=== PATIENT | female | born 1945 | race Caucasian/White ===

== ENCOUNTER 2017-03-19 18:55 | Inpatient (IN) ==
[2017-03-19] MEDS ORDERED: SODIUM CHLORIDE 0.9% 500 ML IV STA (19:40)
[2017-03-19] MEDS ORDERED: VANCOMYCIN INJ 1,000 MG in SODIUM CHLORIDE 0.9% 250 ML IV STA (19:49)
[2017-03-19] MEDS ORDERED: DIPH/TET/ACEL PERT BOOSTER VACCINE 0.5 ML VIAL IM ONE ×2 (19:49→20:23)
[2017-03-19 20:00] LABS: Basophils % 0.2 % (0.0-0.8); Eosinophils % 0.2 % (0.00-10.9); Hematocrit 44.2 VOL% (35.7-47.0); Hemoglobin 15.6 GM/DL (12.0-16.0); Immature Granulocytes % 0.5 %; Immature Granulocytes Absolute 0.06 #; Lymphocytes # 0.5 10*3/uL (1.4-4.0); Lymphocytes % 4.2 % (21.3-54.2); Mean Corpuscular HGB Conc 35.3 GM/DL (32-36); Mean Corpuscular Hemoglobin 36 PG (27-34); Mean Corpuscular Volume 100.7 FL (87-102); Mean Platelet Volume 13.2 FL (9.6-12.0); Monocytes # 0.6 10*3/uL (0.11-0.8); Monocytes % 4.8 % (1.7-12.7); Neutrophils # 10.4 10*3/uL (1.4-7.4); Neutrophils % 90.1 % (38.7-73.9); Platelet Count 113 T/CUMM (130-400); Red Blood Count 4.39 MC/CUMM (3.8-5.5); Red Cell Distribution Width 15.6 % (9.3-17.3); White Blood Count 11.6 T/CUMM (4-12)
[2017-03-19 20:08] LABS: INR 1.1; PT Patient Result 11.2 SECS
[2017-03-19 20:09] LABS: ABG Base Excess 4.6 MMOL/L (-2.5-2.5); ABG HCO3 28.4 MMOL/L (20-26); ABG PCO2 54.3 MM HG (35-48); ABG PH 7.372 (7.35-7.45); ABG PO2 84.5 MM HG (80-95); ABG TCO2 27.2 MMOL/L (23-27)
[2017-03-19] MEDS ORDERED: VANCOMYCIN 1,000 MG VIAL ONE (20:17)
[2017-03-19 20:31] LABS: Ammonia 31 UMOL/L (11-32); Lactic Acid 2.1 MMOL/L (0.4-2.0)
[2017-03-19 20:36] LABS: Barbiturates Screen,Urine Negative (Negative); Benzodiazepines Screen,Urine Negative (Negative); Cannabinoid Screen,Urine Negative (Negative); Opiate Screen,Urine Negative (Negative); Phencyclidine Screen,Urine Negative (Negative)
[2017-03-19 20:37] LABS: Apearance,Urine Slightly Hazy (Clear); Bacteria,Urine Occasional /HPF (Few); Bilirubin,Urine Negative (Negative); Blood, Urine Large mg/dL (Negative); Glucose,Urine (UA) Negative (Negative); Hyaline Casts,Urine 45 /LPF (0-3); Ketones,Urine 5 mg/dL (Negative); Mucus,Urine Occasional /LPF (Occasional); Nitrite,Urine Negative (Negative); Protein,Urine 100 MG/DL; RBC,Urine 114 /HPF (0-4); Squamous Epithelial Cell,Urine Occasional /HPF (0-10); Urine Color Yellow (Yellow); Urine Specific Gravity 1.013 (1.001-1.035); WBC,Urine 1 /HPF (0-6)
[2017-03-19 20:40] LABS: Alanine Aminotransferase 19 U/L (13-56); Alkaline Phosphatase 93 U/L (45-117); Aspartate Amino Transferase 51 U/L (0-37); Blood Urea Nitrogen 27 MG/DL (7-18); Calcium 9.7 MG/DL (8.5-10.1); Glucose 86 MG/DL (74-106); Magnesium 1.5 MG/DL (1.8-2.4); Osmolality,Calculated 254.5 MOS/KG (273-304); Potassium 3.8 MMOL/L (3.5-5.1); Sodium 125 MMOL/L (136-145); Troponin I Only 0.034 NG/ML (0.00-0.045)
[2017-03-19] MEDS ORDERED: MAGNESIUM SULF RIDER 2 GM in PREMIX 1 EACH IV STA (21:17)
[2017-03-19] MEDS ORDERED: LABETALOL 20 MG/4 ML SYRINGE IV PRN (21:41)
[2017-03-19] MEDS ORDERED: ALBUTEROL 2.5 MG/3 ML NEB RESP TX PRN (21:41)
[2017-03-19] MEDS ORDERED: MAGNESIUM SULF RIDER 50 ML IV ONE (21:47)
[2017-03-19] MEDS ORDERED: LORazepam 2 MG/1 ML VIAL IV PRN (22:00)
[2017-03-19] MEDS ORDERED: VALPROIC ACID INJ 500 MG in SODIUM CHLORIDE 0.9% 100 ML IV SCH (22:00)
[2017-03-20] MEDS: SODIUM CHLORIDE 0.9% 1,000 ML IV SCH ×2 (00:31→08:11)
[2017-03-20] MEDS: ENOXAPARIN 40 MG/0.4 ML SYRINGE SUBCUT SCH ×2 (01:13→22:25)
[2017-03-20] MEDS: PANTOPRAZOLE 40 MG VIAL IV SCH ×2 (01:14→22:25)
[2017-03-20 01:16] LABS: Basophils % 0.1 % (0.0-0.8); Hematocrit 35.1 VOL% (35.7-47.0); Hemoglobin 12.3 GM/DL (12.0-16.0); Immature Granulocytes % 0.5 %; Immature Granulocytes Absolute 0.05 #; Lymphocytes # 0.5 10*3/uL (1.4-4.0); Lymphocytes % 4.7 % (21.3-54.2); Mean Corpuscular Hemoglobin 35 PG (27-34); Mean Corpuscular Volume 99.7 FL (87-102); Mean Platelet Volume 13.6 FL (9.6-12.0); Monocytes # 0.7 10*3/uL (0.11-0.8); Monocytes % 6.9 % (1.7-12.7); Neutrophils # 9.4 10*3/uL (1.4-7.4); Neutrophils % 87.8 % (38.7-73.9); Platelet Count 105 T/CUMM (130-400); Red Blood Count 3.52 MC/CUMM (3.8-5.5); Red Cell Distribution Width 15.6 % (9.3-17.3); White Blood Count 10.7 T/CUMM (4-12)
[2017-03-20] MEDS: LEVOFLOXACIN INJ 750 MG in PREMIX 1 EACH IV SCH ×2 (01:17→22:23)
[2017-03-20] MEDS: ALBUTEROL/IPRATROPIUM 3 ML NEB RESP TX SCH ×3 (01:23→12:21)
[2017-03-20 01:37] LABS: Albumin 2.3 G/DL (3.4-5.0); Bilirubin,Total 0.5 MG/DL (0.2-1.0); Calcium 8.7 MG/DL (8.5-10.1); Osmolality,Calculated 269.5 MOS/KG (273-304); Potassium 3.8 MMOL/L (3.5-5.1); Risk Ratio 1.74; Total Protein 5.8 G/DL (6.4-8.3); VLDL CHOLESTEROL 11.6 MG/DL
[2017-03-20] MEDS: levETIRAcetam INJ 500 MG in SODIUM CHLORIDE 0.9% 50 ML IV SCH ×2 (02:01→14:15)
[2017-03-20] MEDS: SODIUM CHLORIDE 0.9% IV SCH ×3 (02:20→18:14)
[2017-03-20] MEDS: VALPROIC ACID IV SCH ×3 (02:20→18:14)
[2017-03-20 03:15] LABS: Band Neutrophils 2 % (0-10); Lymphocytes 6 % (20-55); Platelet Estimate Decreased; Segmented Neutrophils 89 % (50-85); Total Cells Counted 100
[2017-03-20 10:52] LABS: Free T4 (Free Thyroxine) 1.14 NG/DL (0.76-1.46); Thyroid Stimulating Hormone 3.68 uIU/ml (0.358-3.74)
[2017-03-20] MEDS: DEXTROSE 5% NACL 0.9% 1,000 ML IV SCH ×2 (11:06→22:26)
[2017-03-20] MEDS: ASPIRIN 300 MG SUPP RECTAL SCH (11:06)
[2017-03-20] MEDS: LEVOTHYROXINE 75 MCG TABLET PO SCH (19:42)
[2017-03-21] MEDS: ALBUTEROL/IPRATROPIUM 3 ML NEB RESP TX SCH ×4 (00:32→19:52)
[2017-03-21] MEDS: levETIRAcetam INJ 500 MG in SODIUM CHLORIDE 0.9% 50 ML IV SCH ×2 (02:46→15:34)
[2017-03-21] MEDS: VALPROIC ACID IV SCH ×3 (03:09→21:36)
[2017-03-21] MEDS: SODIUM CHLORIDE 0.9% IV SCH ×3 (03:09→21:36)
[2017-03-21] MEDS: DEXTROSE 5% NACL 0.9% 1,000 ML IV SCH (05:52)
[2017-03-21] MEDS: LEVOTHYROXINE 75 MCG TABLET PO SCH (06:25)
[2017-03-21 07:09] LABS: Basophils % 0.1 % (0.0-0.8); Hematocrit 25.7 VOL% (35.7-47.0); Hemoglobin 8.5 GM/DL (12.0-16.0); Immature Granulocytes % 0.4 %; Immature Granulocytes Absolute 0.03 #; Lymphocytes # 0.5 10*3/uL (1.4-4.0); Mean Corpuscular HGB Conc 33.1 GM/DL (32-36); Mean Corpuscular Hemoglobin 36 PG (27-34); Mean Corpuscular Volume 108.4 FL (87-102); Mean Platelet Volume 13.7 FL (9.6-12.0); Monocytes # 0.5 10*3/uL (0.11-0.8); Monocytes % 5.7 % (1.7-12.7); NRBC # 0.02 10*3/uL; Neutrophils # 7.2 10*3/uL (1.4-7.4); Neutrophils % 87.8 % (38.7-73.9); Platelet Count 72 T/CUMM (130-400); Red Blood Count 2.37 MC/CUMM (3.8-5.5); Red Cell Distribution Width 16.6 % (9.3-17.3); White Blood Count 8.2 T/CUMM (4-12)
[2017-03-21 07:26] LABS: Macrocytosis 1+
[2017-03-21 07:27] LABS: Platelet Estimate Decreased
[2017-03-21 07:37] LABS: Calcium 6.8 MG/DL (8.5-10.1); Osmolality,Calculated 304.8 MOS/KG (273-304); Potassium 2.9 MMOL/L (3.5-5.1)
[2017-03-21] MEDS ORDERED: DEXTROSE 50% 25 GM/50 ML VIAL IV PRN (07:50)
[2017-03-21] MEDS ORDERED: GLUCAGON 1 MG VIAL IM PRN (07:50)
[2017-03-21] MEDS: INSULIN REGULAR 100 UNIT/ML SUBCUT SCH ×3 (12:41→20:30)
[2017-03-21] MEDS ORDERED: MAGNESIUM SULF RIDER 2 GM in PREMIX 1 EACH IV ONE (13:50)
[2017-03-21] MEDS ORDERED: CALCIUM GLUCONATE 2,000 MG in SODIUM CHLORIDE 0.9% 100 ML IV ONE (13:50)
[2017-03-21] MEDS ORDERED: POTASSIUM CHLORIDE 20 MEQ TABLET PO ONE (14:00)
[2017-03-21] MEDS: ASPIRIN 300 MG SUPP RECTAL SCH (17:50)
[2017-03-21] MEDS: ENOXAPARIN 40 MG/0.4 ML SYRINGE SUBCUT SCH (22:42)
[2017-03-21] MEDS: LEVOFLOXACIN INJ 750 MG in PREMIX 1 EACH IV SCH (22:42)
[2017-03-21] MEDS: PANTOPRAZOLE 40 MG VIAL IV SCH (22:42)
[2017-03-22] MEDS: ALBUTEROL/IPRATROPIUM 3 ML NEB RESP TX SCH ×5 (01:42→19:33)
[2017-03-22] MEDS: levETIRAcetam INJ 500 MG in SODIUM CHLORIDE 0.9% 50 ML IV SCH ×2 (02:25→15:16)
[2017-03-22] MEDS: SODIUM CHLORIDE 0.9% IV SCH ×3 (02:45→18:42)
[2017-03-22] MEDS: VALPROIC ACID IV SCH ×3 (02:45→18:42)
[2017-03-22] MEDS: LEVOTHYROXINE 75 MCG TABLET PO SCH (07:05)
[2017-03-22 07:13] LABS: Basophils % 0.2 % (0.0-0.8); Hematocrit 33.6 VOL% (35.7-47.0); Hemoglobin 11.5 GM/DL (12.0-16.0); Immature Granulocytes % 1.4 %; Immature Granulocytes Absolute 0.12 #; Lymphocytes # 0.6 10*3/uL (1.4-4.0); Lymphocytes % 7.5 % (21.3-54.2); Mean Corpuscular HGB Conc 34.2 GM/DL (32-36); Mean Corpuscular Hemoglobin 35 PG (27-34); Mean Corpuscular Volume 103.1 FL (87-102); Mean Platelet Volume 13.3 FL (9.6-12.0); Monocytes # 0.6 10*3/uL (0.11-0.8); Monocytes % 7.5 % (1.7-12.7); NRBC # 0.03 10*3/uL; Neutrophils % 83.4 % (38.7-73.9); Platelet Count 96 T/CUMM (130-400); Red Blood Count 3.26 MC/CUMM (3.8-5.5); Red Cell Distribution Width 16.4 % (9.3-17.3); White Blood Count 8.4 T/CUMM (4-12)
[2017-03-22 07:30] LABS: Hypochromasia 2+
[2017-03-22 07:39] LABS: Calcium 8.9 MG/DL (8.5-10.1); Magnesium 2.2 MG/DL (1.8-2.4); Osmolality,Calculated 269.2 MOS/KG (273-304); Potassium 3.8 MMOL/L (3.5-5.1)
[2017-03-22] MEDS: INSULIN REGULAR 100 UNIT/ML SUBCUT SCH ×4 (08:49→21:27)
[2017-03-22] MEDS: ASPIRIN 300 MG SUPP RECTAL SCH (09:59)
[2017-03-22] MEDS: ACETYLCYSTEINE 20% 6,000 MG/30 ML VIAL RESP TX SCH ×2 (12:37→18:46)
[2017-03-22] MEDS: ENOXAPARIN 40 MG/0.4 ML SYRINGE SUBCUT SCH (22:23)
[2017-03-22] MEDS: PANTOPRAZOLE 40 MG VIAL IV SCH (22:24)
[2017-03-22] MEDS: LEVOFLOXACIN INJ 750 MG in PREMIX 1 EACH IV SCH (22:27)
[2017-03-23] MEDS: ALBUTEROL/IPRATROPIUM 3 ML NEB RESP TX SCH ×5 (00:11→23:33)
[2017-03-23] MEDS: ACETYLCYSTEINE 20% 6,000 MG/30 ML VIAL RESP TX SCH ×3 (00:11→16:13)
[2017-03-23] MEDS: levETIRAcetam INJ 500 MG in SODIUM CHLORIDE 0.9% 50 ML IV SCH ×2 (02:16→15:11)
[2017-03-23] MEDS: VALPROIC ACID IV SCH ×3 (04:26→18:35)
[2017-03-23] MEDS: SODIUM CHLORIDE 0.9% IV SCH ×3 (04:26→18:35)
[2017-03-23] MEDS: LEVOTHYROXINE 75 MCG TABLET PO SCH (06:21)
[2017-03-23 07:15] LABS: PT Patient Result 10.4 SECS; Partial Thromboplastin Time 35.7 SECS (0-40)
[2017-03-23 07:40] LABS: Calcium 9.1 MG/DL (8.5-10.1)
[2017-03-23] MEDS ORDERED: LIDOCAINE 2% 20 ML VIAL RESP TX ONE (08:14)
[2017-03-23] MEDS ORDERED: LIDOCAINE 2% TOP JELLY 5 ML TUBE TOP ONE (08:16)
[2017-03-23] MEDS ORDERED: LIDOCAINE 1% 20 ML VIAL MISC INJ ONE (08:30)
[2017-03-23] MEDS: INSULIN REGULAR 100 UNIT/ML SUBCUT SCH ×4 (09:54→21:53)
[2017-03-23] MEDS: ASPIRIN 300 MG SUPP RECTAL SCH (11:08)
[2017-03-23] MEDS: amLODIPine 5 MG TABLET PO SCH (15:12)
[2017-03-23] MEDS: LISINOPRIL/HCTZ 20-12.5 MG TABLET PO SCH (15:13)
[2017-03-23] MEDS: DORNASE ALFA 2.5 MG/2.5 ML VIAL RESP TX SCH (18:55)
[2017-03-23] MEDS: LEVOFLOXACIN INJ 750 MG in PREMIX 1 EACH IV SCH (21:42)
[2017-03-23] MEDS: PANTOPRAZOLE 40 MG VIAL IV SCH (21:45)
[2017-03-23] MEDS: ENOXAPARIN 40 MG/0.4 ML SYRINGE SUBCUT SCH (21:49)
[2017-03-24] MEDS: levETIRAcetam INJ 500 MG in SODIUM CHLORIDE 0.9% 50 ML IV SCH ×2 (02:17→14:32)
[2017-03-24] MEDS: SODIUM CHLORIDE 0.9% IV SCH ×3 (03:09→18:42)
[2017-03-24] MEDS: VALPROIC ACID IV SCH ×3 (03:09→18:42)
[2017-03-24] MEDS: ALBUTEROL/IPRATROPIUM 3 ML NEB RESP TX SCH ×3 (07:07→19:24)
[2017-03-24] MEDS: INSULIN REGULAR 100 UNIT/ML SUBCUT SCH ×4 (08:09→20:13)
[2017-03-24] MEDS: LISINOPRIL/HCTZ 20-12.5 MG TABLET PO SCH (08:40)
[2017-03-24] MEDS: LEVOTHYROXINE 75 MCG TABLET PO SCH (08:41)
[2017-03-24] MEDS: amLODIPine 5 MG TABLET PO SCH (08:41)
[2017-03-24] MEDS: ASPIRIN 300 MG SUPP RECTAL SCH (08:41)
[2017-03-24] MEDS: NICOTINE 21 MG/24 HR PATCH TRANSDERM SCH (15:00)
[2017-03-24] MEDS ORDERED: ACETAMINOPHEN 325 MG SUPP RECTAL PRN (16:16)
[2017-03-24] MEDS ORDERED: hydrALAZINE 20 MG/1 ML VIAL IV PRN (16:17)
[2017-03-24] MEDS: DEXTROSE 5% 1,000 ML IV SCH (17:38)
[2017-03-24] MEDS: SODIUM CHLORIDE 0.9% 1,000 ML IV SCH (17:49)
[2017-03-24] MEDS: DORNASE ALFA 2.5 MG/2.5 ML VIAL RESP TX SCH (19:24)
[2017-03-24] MEDS: VANCOMYCIN INJ 1,250 MG in SODIUM CHLORIDE 0.45% 250 ML IV SCH (20:10)
[2017-03-24] MEDS: ENOXAPARIN 40 MG/0.4 ML SYRINGE SUBCUT SCH (22:16)
[2017-03-24] MEDS: PANTOPRAZOLE 40 MG VIAL IV SCH (22:16)
[2017-03-24] MEDS: LEVOFLOXACIN INJ 750 MG in PREMIX 1 EACH IV SCH (22:19)
[2017-03-25] MEDS: ALBUTEROL/IPRATROPIUM 3 ML NEB RESP TX SCH ×4 (00:14→19:22)
[2017-03-25] MEDS: levETIRAcetam INJ 500 MG in SODIUM CHLORIDE 0.9% 50 ML IV SCH ×2 (02:16→14:04)
[2017-03-25 02:35] LABS: Calcium 8.4 MG/DL (8.5-10.1); Potassium 3.8 MMOL/L (3.5-5.1)
[2017-03-25] MEDS: VALPROIC ACID IV SCH ×3 (02:37→18:34)
[2017-03-25] MEDS: SODIUM CHLORIDE 0.9% IV SCH ×3 (02:37→18:34)
[2017-03-25 02:55] LABS: Basophils % 0.5 % (0.0-0.8); Eosinophils % 0.4 % (0.00-10.9); Hematocrit 31.7 VOL% (35.7-47.0); Hemoglobin 10.6 GM/DL (12.0-16.0); Immature Granulocytes % 6.2 %; Lymphocytes # 0.9 10*3/uL (1.4-4.0); Mean Corpuscular HGB Conc 33.4 GM/DL (32-36); Mean Corpuscular Hemoglobin 35 PG (27-34); Mean Corpuscular Volume 105.7 FL (87-102); Mean Platelet Volume 13.4 FL (9.6-12.0); Monocytes # 1.4 10*3/uL (0.11-0.8); Monocytes % 17.1 % (1.7-12.7); Neutrophils # 5.2 10*3/uL (1.4-7.4); Neutrophils % 64.8 % (38.7-73.9); Platelet Count 63 T/CUMM (130-400); Red Cell Distribution Width 16.5 % (9.3-17.3); White Blood Count 8.1 T/CUMM (4-12)
[2017-03-25] MEDS: LEVOTHYROXINE 75 MCG TABLET PO SCH (06:16)
[2017-03-25] MEDS: INSULIN REGULAR 100 UNIT/ML SUBCUT SCH ×4 (07:45→20:25)
[2017-03-25] MEDS: DORNASE ALFA 2.5 MG/2.5 ML VIAL RESP TX SCH ×3 (07:52→19:34)
[2017-03-25 08:13] LABS: Hypochromasia 2+; Lymphocytes 13 % (20-55); Microcytosis 1+; Platelet Estimate Decreased; Segmented Neutrophils 72 % (50-85); Total Cells Counted 100
[2017-03-25] MEDS: VANCOMYCIN INJ 1,250 MG in SODIUM CHLORIDE 0.45% 250 ML IV SCH ×2 (08:39→20:25)
[2017-03-25] MEDS: ASPIRIN 300 MG SUPP RECTAL SCH (08:39)
[2017-03-25] MEDS: NICOTINE 21 MG/24 HR PATCH TRANSDERM SCH (08:39)
[2017-03-25] MEDS: DEXTROSE 5% 1,000 ML IV SCH (13:34)
[2017-03-25] MEDS: SODIUM CHLORIDE 0.9% 1,000 ML IV SCH (14:01)
[2017-03-25] MEDS: PANTOPRAZOLE 40 MG VIAL IV SCH (22:27)
[2017-03-25] MEDS: LEVOFLOXACIN INJ 750 MG in PREMIX 1 EACH IV SCH (22:29)
[2017-03-25] MEDS: ENOXAPARIN 40 MG/0.4 ML SYRINGE SUBCUT SCH (22:30)
[2017-03-26] MEDS: ALBUTEROL/IPRATROPIUM 3 ML NEB RESP TX SCH ×4 (01:21→20:15)
[2017-03-26] MEDS: DEXTROSE 5% 1,000 ML IV SCH ×2 (01:40→09:08)
[2017-03-26] MEDS: levETIRAcetam INJ 500 MG in SODIUM CHLORIDE 0.9% 50 ML IV SCH ×2 (01:40→15:00)
[2017-03-26] MEDS: SODIUM CHLORIDE 0.9% IV SCH ×3 (02:45→18:23)
[2017-03-26] MEDS: VALPROIC ACID IV SCH ×3 (02:45→18:23)
[2017-03-26 05:51] LABS: Calcium 7.6 MG/DL (8.5-10.1); Magnesium 1.7 MG/DL (1.8-2.4); Osmolality,Calculated 279.2 MOS/KG (273-304); Phosphorous 2.9 MG/DL (2.5-4.9); Potassium 3.9 MMOL/L (3.5-5.1); Prealbumin 5.5 MG/DL (20-40)
[2017-03-26] MEDS: DORNASE ALFA 2.5 MG/2.5 ML VIAL RESP TX SCH ×2 (07:46→20:15)
[2017-03-26] MEDS: LEVOTHYROXINE 75 MCG TABLET PO SCH (07:58)
[2017-03-26] MEDS: INSULIN REGULAR 100 UNIT/ML SUBCUT SCH ×4 (09:05→20:43)
[2017-03-26] MEDS: VANCOMYCIN INJ 1,250 MG in SODIUM CHLORIDE 0.45% 250 ML IV SCH (09:06)
[2017-03-26] MEDS: SODIUM CHLORIDE 0.9% 1,000 ML IV SCH ×2 (09:08→11:31)
[2017-03-26] MEDS: ASPIRIN 300 MG SUPP RECTAL SCH (09:51)
[2017-03-26] MEDS: SKIN HEALING OINT (AQUAPHOR) 50 GM TUBE TOP PRN (09:56)
[2017-03-26] MEDS: NICOTINE 21 MG/24 HR PATCH TRANSDERM SCH (10:00)
[2017-03-26 10:43] LABS: ABG Base Excess 10.5 MMOL/L (-2.5-2.5); ABG HCO3 34.2 MMOL/L (20-26); ABG Oxygen Saturation 93.3 % (95-100); ABG PCO2 54.9 MM HG (35-48); ABG PH 7.432 (7.35-7.45); ABG PO2 68.3 MM HG (80-95); ABG TCO2 33.3 MMOL/L (23-27)
[2017-03-26] MEDS: methylPREDNISolone SOD SUC 125 MG/2 ML VIAL IV SCH ×2 (11:31→21:55)
[2017-03-26] MEDS: PANTOPRAZOLE 40 MG VIAL IV SCH (21:54)
[2017-03-26] MEDS: LEVOFLOXACIN INJ 750 MG in PREMIX 1 EACH IV SCH (21:57)
[2017-03-26] MEDS: CHLORHEXIDINE 0.12% ORAL RINSE 60 ML BOTTLE SWISH/SPIT SCH (22:10)
[2017-03-27] MEDS: ALBUTEROL/IPRATROPIUM 3 ML NEB RESP TX SCH ×4 (01:25→20:00)
[2017-03-27] MEDS: levETIRAcetam INJ 500 MG in SODIUM CHLORIDE 0.9% 50 ML IV SCH ×2 (02:01→14:13)
[2017-03-27] MEDS: VALPROIC ACID IV SCH ×3 (02:19→18:19)
[2017-03-27] MEDS: SODIUM CHLORIDE 0.9% IV SCH ×3 (02:19→18:19)
[2017-03-27] MEDS: VANCOMYCIN INJ 1,250 MG in SODIUM CHLORIDE 0.45% 250 ML IV SCH ×2 (04:04→21:28)
[2017-03-27] MEDS: LEVOTHYROXINE 75 MCG TABLET PO SCH (07:31)
[2017-03-27 08:15] LABS: Basophils # 0.1 10*3/uL (0.0-0.2); Basophils % 0.4 % (0.0-0.8); Hematocrit 34.6 VOL% (35.7-47.0); Hemoglobin 11.5 GM/DL (12.0-16.0); Immature Granulocytes % 4.4 %; Immature Granulocytes Absolute 0.63 #; Lymphocytes # 0.4 10*3/uL (1.4-4.0); Lymphocytes % 2.7 % (21.3-54.2); Mean Corpuscular HGB Conc 33.2 GM/DL (32-36); Mean Corpuscular Hemoglobin 35 PG (27-34); Mean Corpuscular Volume 105.2 FL (87-102); Mean Platelet Volume 13.7 FL (9.6-12.0); Monocytes # 0.6 10*3/uL (0.11-0.8); Monocytes % 3.9 % (1.7-12.7); NRBC # 0.04 10*3/uL; Neutrophils # 12.7 10*3/uL (1.4-7.4); Neutrophils % 88.6 % (38.7-73.9); Platelet Count 58 T/CUMM (130-400); Red Blood Count 3.29 MC/CUMM (3.8-5.5); Red Cell Distribution Width 15.9 % (9.3-17.3); White Blood Count 14.3 T/CUMM (4-12)
[2017-03-27] MEDS: DORNASE ALFA 2.5 MG/2.5 ML VIAL RESP TX SCH ×2 (08:28→20:10)
[2017-03-27] MEDS: INSULIN REGULAR 100 UNIT/ML SUBCUT SCH ×4 (08:32→21:25)
[2017-03-27 08:39] LABS: Band Neutrophils 4 % (0-10); Hypochromasia 2+; Lymphocytes 1 % (20-55); Metamyelocytes 3 %; Segmented Neutrophils 90 % (50-85); Total Cells Counted 100
[2017-03-27 08:40] LABS: Albumin 1.5 G/DL (3.4-5.0); Bilirubin,Total 0.4 MG/DL (0.2-1.0); Macrocytosis 1+; Osmolality,Calculated 278.1 MOS/KG (273-304); Phosphorous 3.7 MG/DL (2.5-4.9); Platelet Estimate Decreased; Potassium 4.4 MMOL/L (3.5-5.1); Total Protein 5.5 G/DL (6.4-8.3)
[2017-03-27] MEDS: methylPREDNISolone SOD SUC 125 MG/2 ML VIAL IV SCH ×2 (09:50→22:44)
[2017-03-27] MEDS: NICOTINE 21 MG/24 HR PATCH TRANSDERM SCH (09:55)
[2017-03-27] MEDS: CHLORHEXIDINE 0.12% ORAL RINSE 60 ML BOTTLE SWISH/SPIT SCH ×2 (09:59→21:29)
[2017-03-27] MEDS ORDERED: FUROSEMIDE 40 MG/4 ML VIAL IV ONE (12:12)
[2017-03-27] MEDS: SODIUM CHLORIDE 0.9% 1,000 ML IV SCH (14:09)
[2017-03-27] MEDS ORDERED: TUBERCULIN SKIN TEST 0.1 ML SYRINGE INTRADERM ONE (15:00)
[2017-03-27] MEDS: PANTOPRAZOLE 40 MG VIAL IV SCH (22:42)
[2017-03-27] MEDS: LEVOFLOXACIN INJ 750 MG in PREMIX 1 EACH IV SCH (23:40)
[2017-03-28] MEDS: ALBUTEROL/IPRATROPIUM 3 ML NEB RESP TX SCH ×4 (01:20→19:49)
[2017-03-28] MEDS: levETIRAcetam INJ 500 MG in SODIUM CHLORIDE 0.9% 50 ML IV SCH ×2 (01:53→14:02)
[2017-03-28] MEDS: SODIUM CHLORIDE 0.9% 1,000 ML IV SCH ×2 (02:06→22:15)
[2017-03-28] MEDS: VALPROIC ACID IV SCH ×3 (02:16→18:03)
[2017-03-28] MEDS: SODIUM CHLORIDE 0.9% IV SCH ×3 (02:16→18:03)
[2017-03-28 05:42] LABS: Basophils # 0.1 10*3/uL (0.0-0.2); Basophils % 0.5 % (0.0-0.8); Hematocrit 34.1 VOL% (35.7-47.0); Hemoglobin 11.6 GM/DL (12.0-16.0); Immature Granulocytes % 5.9 %; Lymphocytes # 0.4 10*3/uL (1.4-4.0); Lymphocytes % 2.1 % (21.3-54.2); Mean Corpuscular Hemoglobin 35 PG (27-34); Mean Corpuscular Volume 103.6 FL (87-102); Mean Platelet Volume 14.2 FL (9.6-12.0); Monocytes # 0.9 10*3/uL (0.11-0.8); Monocytes % 5.6 % (1.7-12.7); NRBC # 0.06 10*3/uL; Neutrophils # 14.5 10*3/uL (1.4-7.4); Neutrophils % 85.9 % (38.7-73.9); Platelet Count 64 T/CUMM (130-400); Red Blood Count 3.29 MC/CUMM (3.8-5.5); Red Cell Distribution Width 15.9 % (9.3-17.3); White Blood Count 16.9 T/CUMM (4-12)
[2017-03-28 06:02] LABS: Band Neutrophils 3 % (0-10); Hypochromasia 2+; Lymphocytes 2 % (20-55); Macrocytosis 1+; Nucleated Red Blood Cells 2 (0-5); Platelet Estimate Decreased; Segmented Neutrophils 94 % (50-85); Total Cells Counted 100
[2017-03-28 06:16] LABS: Calcium 8.9 MG/DL (8.5-10.1); Magnesium 1.9 MG/DL (1.8-2.4); Osmolality,Calculated 289.5 MOS/KG (273-304); Potassium 3.6 MMOL/L (3.5-5.1)
[2017-03-28 06:22] LABS: Albumin 1.7 G/DL (3.4-5.0); Bilirubin,Total 0.6 MG/DL (0.2-1.0); Calcium 8.9 MG/DL (8.5-10.1); Osmolality,Calculated 289.5 MOS/KG (273-304); Potassium 3.6 MMOL/L (3.5-5.1); Total Protein 5.7 G/DL (6.4-8.3)
[2017-03-28] MEDS: LEVOTHYROXINE 75 MCG TABLET PO SCH (08:02)
[2017-03-28] MEDS: DORNASE ALFA 2.5 MG/2.5 ML VIAL RESP TX SCH ×2 (08:08→19:49)
[2017-03-28] MEDS ORDERED: MIDAZOLAM 2 MG/2 ML VIAL ONE (08:26)
[2017-03-28] MEDS ORDERED: PROPOFOL 200 MG/20 ML VIAL IV ONE (08:32)
[2017-03-28] MEDS ORDERED: LIDOCAINE 2% 5 ML VIAL ONE (08:32)
[2017-03-28] MEDS: INSULIN REGULAR 100 UNIT/ML SUBCUT SCH ×4 (09:04→22:15)
[2017-03-28] MEDS: CHLORHEXIDINE 0.12% ORAL RINSE 60 ML BOTTLE SWISH/SPIT SCH ×2 (10:24→22:15)
[2017-03-28] MEDS: methylPREDNISolone SOD SUC 125 MG/2 ML VIAL IV SCH ×2 (10:31→23:34)
[2017-03-28] MEDS: NICOTINE 21 MG/24 HR PATCH TRANSDERM SCH (10:32)
[2017-03-28] MEDS: FUROSEMIDE 20 MG/2 ML VIAL IV SCH ×2 (11:13→23:38)
[2017-03-28] MEDS ORDERED: FUROSEMIDE 40 MG/4 ML VIAL IV ONE (13:32)
[2017-03-28] MEDS: VANCOMYCIN INJ 1,250 MG in SODIUM CHLORIDE 0.45% 250 ML IV SCH (14:46)
[2017-03-28] MEDS: PANTOPRAZOLE 40 MG VIAL IV SCH (23:40)
[2017-03-28] MEDS: LEVOFLOXACIN INJ 750 MG in PREMIX 1 EACH IV SCH (23:43)
[2017-03-29] MEDS: ALBUTEROL/IPRATROPIUM 3 ML NEB RESP TX SCH ×4 (00:41→19:05)
[2017-03-29] MEDS: levETIRAcetam INJ 500 MG in SODIUM CHLORIDE 0.9% 50 ML IV SCH ×2 (01:45→14:03)
[2017-03-29] MEDS: SODIUM CHLORIDE 0.9% IV SCH ×3 (02:23→18:04)
[2017-03-29] MEDS: VALPROIC ACID IV SCH ×3 (02:23→18:04)
[2017-03-29 03:21] LABS: Apearance,Urine CLEAR (Clear); Bilirubin,Urine Negative (Negative); Blood, Urine Small mg/dL (Negative); Glucose,Urine (UA) Negative (Negative); Hyaline Casts,Urine 2 /LPF (0-3); Ketones,Urine Negative (Negative); Mucus,Urine Occasional /LPF (Occasional); Nitrite,Urine Negative (Negative); Protein,Urine Negative; RBC,Urine 5 /HPF (0-4); Urine Color Yellow (Yellow); Urine Specific Gravity 1.009 (1.001-1.035); Urine Urobilinogen < 2.0 EU/DL (0.2-1.0); WBC,Urine <1 /HPF (0-6)
[2017-03-29 06:40] LABS: Calcium 8.8 MG/DL (8.5-10.1); Magnesium 2.1 MG/DL (1.8-2.4); Osmolality,Calculated 300.1 MOS/KG (273-304); Phosphorous 3.8 MG/DL (2.5-4.9); Potassium 3.8 MMOL/L (3.5-5.1)
[2017-03-29] MEDS: DORNASE ALFA 2.5 MG/2.5 ML VIAL RESP TX SCH ×2 (07:26→19:05)
[2017-03-29] MEDS: NICOTINE 21 MG/24 HR PATCH TRANSDERM SCH (08:57)
[2017-03-29] MEDS: CHLORHEXIDINE 0.12% ORAL RINSE 60 ML BOTTLE SWISH/SPIT SCH ×2 (08:57→22:15)
[2017-03-29] MEDS: LEVOTHYROXINE 75 MCG TABLET PO SCH (08:57)
[2017-03-29] MEDS: INSULIN REGULAR 100 UNIT/ML SUBCUT SCH ×4 (08:57→22:05)
[2017-03-29] MEDS: SODIUM CHLORIDE 0.9% 1,000 ML IV SCH ×2 (09:07→18:04)
[2017-03-29] MEDS: methylPREDNISolone SOD SUC 125 MG/2 ML VIAL IV SCH ×2 (10:36→22:10)
[2017-03-29] MEDS: FUROSEMIDE 20 MG/2 ML VIAL IV SCH ×2 (10:38→22:09)
[2017-03-29] MEDS: PANTOPRAZOLE 40 MG VIAL IV SCH (22:06)
[2017-03-29] MEDS: LEVOFLOXACIN INJ 750 MG in PREMIX 1 EACH IV SCH (22:12)
[2017-03-30] MEDS: ALBUTEROL/IPRATROPIUM 3 ML NEB RESP TX SCH ×4 (00:22→19:15)
[2017-03-30] MEDS: levETIRAcetam INJ 500 MG in SODIUM CHLORIDE 0.9% 50 ML IV SCH ×2 (02:24→15:39)
[2017-03-30] MEDS: VALPROIC ACID IV SCH ×3 (02:41→17:30)
[2017-03-30] MEDS: SODIUM CHLORIDE 0.9% IV SCH ×3 (02:41→17:30)
[2017-03-30 05:31] LABS: Basophils # 0.1 10*3/uL (0.0-0.2); Basophils % 0.4 % (0.0-0.8); Hematocrit 31.6 VOL% (35.7-47.0); Hemoglobin 10.3 GM/DL (12.0-16.0); Immature Granulocytes % 7.7 %; Immature Granulocytes Absolute 1.15 #; Lymphocytes # 0.5 10*3/uL (1.4-4.0); Lymphocytes % 3.3 % (21.3-54.2); Mean Corpuscular HGB Conc 32.6 GM/DL (32-36); Mean Corpuscular Hemoglobin 35 PG (27-34); Mean Corpuscular Volume 107.1 FL (87-102); Mean Platelet Volume 13.8 FL (9.6-12.0); Monocytes # 1.1 10*3/uL (0.11-0.8); Monocytes % 7.3 % (1.7-12.7); NRBC # 0.04 10*3/uL; Neutrophils # 12.2 10*3/uL (1.4-7.4); Neutrophils % 81.3 % (38.7-73.9); Platelet Count 60 T/CUMM (130-400); Red Blood Count 2.95 MC/CUMM (3.8-5.5)
[2017-03-30 06:18] LABS: Band Neutrophils 1 % (0-10); Lymphocytes 4 % (20-55); Metamyelocytes 2 %; Total Cells Counted 100
[2017-03-30 06:19] LABS: Hypochromasia 2+; Platelet Estimate Decreased; Segmented Neutrophils 85 % (50-85); Target Cells 1+
[2017-03-30] MEDS ORDERED: VANCOMYCIN INJ 1,250 MG in SODIUM CHLORIDE 0.45% 250 ML IV PRN (07:30)
[2017-03-30] MEDS: DORNASE ALFA 2.5 MG/2.5 ML VIAL RESP TX SCH ×2 (07:36→19:20)
[2017-03-30] MEDS ORDERED: VANCOMYCIN INJ 1,250 MG in SODIUM CHLORIDE 0.45% 250 ML IV ONE (09:00)
[2017-03-30] MEDS ORDERED: LIDOCAINE 1% 20 ML VIAL MISC INJ ONE (10:16)
[2017-03-30] MEDS ORDERED: LIDOCAINE 2% TOP JELLY 5 ML TUBE TOP ONE (11:00)
[2017-03-30] MEDS: LEVOTHYROXINE 75 MCG TABLET PO SCH (11:23)
[2017-03-30] MEDS: FLUCONAZOLE INJ 200 MG in PREMIX 1 EACH IV SCH ×2 (11:24→14:40)
[2017-03-30] MEDS: NICOTINE 21 MG/24 HR PATCH TRANSDERM SCH (11:24)
[2017-03-30] MEDS: ASPIRIN 300 MG SUPP RECTAL SCH (11:24)
[2017-03-30] MEDS: INSULIN REGULAR 100 UNIT/ML SUBCUT SCH ×4 (11:24→20:51)
[2017-03-30] MEDS: CHLORHEXIDINE 0.12% ORAL RINSE 60 ML BOTTLE SWISH/SPIT SCH ×2 (11:29→21:34)
[2017-03-30] MEDS: methylPREDNISolone SOD SUC 125 MG/2 ML VIAL IV SCH ×2 (12:47→22:09)
[2017-03-30] MEDS: SODIUM CHLORIDE 0.9% 1,000 ML IV SCH (14:38)
[2017-03-30] MEDS: FUROSEMIDE 40 MG/4 ML VIAL IV SCH (16:35)
[2017-03-30] MEDS: PANTOPRAZOLE 40 MG VIAL IV SCH (22:08)
[2017-03-30] MEDS: LEVOFLOXACIN INJ 750 MG in PREMIX 1 EACH IV SCH (22:12)
[2017-03-30] MEDS: ENOXAPARIN 40 MG/0.4 ML SYRINGE SUBCUT SCH (22:13)
[2017-03-31] MEDS: ALBUTEROL/IPRATROPIUM 3 ML NEB RESP TX SCH ×4 (00:38→20:44)
[2017-03-31] MEDS: levETIRAcetam INJ 500 MG in SODIUM CHLORIDE 0.9% 50 ML IV SCH ×2 (02:21→14:24)
[2017-03-31] MEDS: SODIUM CHLORIDE 0.9% IV SCH ×2 (03:02→10:08)
[2017-03-31] MEDS: VALPROIC ACID IV SCH ×2 (03:02→10:08)
[2017-03-31] MEDS: LEVOTHYROXINE 75 MCG TABLET PO SCH (06:59)
[2017-03-31 07:01] LABS: Basophils # 0.1 10*3/uL (0.0-0.2); Basophils % 0.4 % (0.0-0.8); Hematocrit 31.7 VOL% (35.7-47.0); Hemoglobin 10.2 GM/DL (12.0-16.0); Immature Granulocytes Absolute 1.07 #; Lymphocytes # 0.4 10*3/uL (1.4-4.0); Lymphocytes % 2.6 % (21.3-54.2); Mean Corpuscular HGB Conc 32.2 GM/DL (32-36); Mean Corpuscular Hemoglobin 35 PG (27-34); Mean Corpuscular Volume 108.6 FL (87-102); Mean Platelet Volume 14.1 FL (9.6-12.0); Monocytes # 0.6 10*3/uL (0.11-0.8); NRBC # 0.05 10*3/uL; Neutrophils # 13.1 10*3/uL (1.4-7.4); Platelet Count 53 T/CUMM (130-400); Red Blood Count 2.92 MC/CUMM (3.8-5.5); Red Cell Distribution Width 16.2 % (9.3-17.3); White Blood Count 15.2 T/CUMM (4-12)
[2017-03-31 07:25] LABS: Calcium 7.4 MG/DL (8.5-10.1); Osmolality,Calculated 310.6 MOS/KG (273-304); Potassium 4.7 MMOL/L (3.5-5.1)
[2017-03-31] MEDS: DORNASE ALFA 2.5 MG/2.5 ML VIAL RESP TX SCH ×2 (07:40→20:44)
[2017-03-31 08:08] LABS: Band Neutrophils 4 % (0-10); Giant Platelets Few; Hypochromasia 1+; Lymphocytes 4 % (20-55); Platelet Estimate Decreased; Segmented Neutrophils 87 % (50-85); Total Cells Counted 100
[2017-03-31] MEDS: INSULIN REGULAR 100 UNIT/ML SUBCUT SCH ×3 (08:35→17:09)
[2017-03-31] MEDS: FUROSEMIDE 40 MG/4 ML VIAL IV SCH ×2 (10:00→17:01)
[2017-03-31] MEDS: methylPREDNISolone SOD SUC 125 MG/2 ML VIAL IV SCH (10:04)
[2017-03-31] MEDS: NICOTINE 21 MG/24 HR PATCH TRANSDERM SCH (10:10)
[2017-03-31] MEDS: CHLORHEXIDINE 0.12% ORAL RINSE 60 ML BOTTLE SWISH/SPIT SCH ×2 (10:12→21:13)
[2017-03-31] MEDS: FLUCONAZOLE INJ 200 MG in PREMIX 1 EACH IV SCH (13:03)
[2017-03-31] MEDS: ASPIRIN 300 MG SUPP RECTAL SCH (13:05)
[2017-03-31] MEDS: SKIN HEALING OINT (AQUAPHOR) 50 GM TUBE TOP PRN (13:15)
[2017-03-31] MEDS: SODIUM CHLORIDE 0.9% 1,000 ML IV SCH (18:15)
[2017-03-31] MEDS: methylPREDNISolone SOD SUC 40 MG/1 ML VIAL IV SCH (21:07)
[2017-03-31] MEDS: levETIRAcetam LIQUID 100 MG/ML 30 ML/BOTTLE PO SCH (21:12)
[2017-03-31] MEDS: VALPROIC ACID 250 MG/5 ML UDCUP PO SCH (22:33)
[2017-03-31] MEDS: PANTOPRAZOLE 40 MG VIAL IV SCH (22:35)
[2017-03-31] MEDS: ENOXAPARIN 40 MG/0.4 ML SYRINGE SUBCUT SCH (22:40)
[2017-04-01] MEDS: ALBUTEROL/IPRATROPIUM 3 ML NEB RESP TX SCH ×4 (00:56→18:57)
[2017-04-01] MEDS: INSULIN REGULAR 100 UNIT/ML SUBCUT SCH ×5 (05:12→22:51)
[2017-04-01] MEDS: VALPROIC ACID 250 MG/5 ML UDCUP PO SCH ×3 (06:18→22:48)
[2017-04-01 06:48] LABS: Basophils # 0.1 10*3/uL (0.0-0.2); Basophils % 0.4 % (0.0-0.8); Hematocrit 31.2 VOL% (35.7-47.0); Immature Granulocytes % 9.9 %; Immature Granulocytes Absolute 1.41 #; Lymphocytes # 0.5 10*3/uL (1.4-4.0); Lymphocytes % 3.8 % (21.3-54.2); Mean Corpuscular HGB Conc 32.1 GM/DL (32-36); Mean Corpuscular Hemoglobin 35 PG (27-34); Mean Corpuscular Volume 108.3 FL (87-102); Mean Platelet Volume 13.9 FL (9.6-12.0); Monocytes # 0.5 10*3/uL (0.11-0.8); Monocytes % 3.7 % (1.7-12.7); NRBC # 0.04 10*3/uL; Neutrophils # 11.7 10*3/uL (1.4-7.4); Neutrophils % 82.2 % (38.7-73.9); Red Blood Count 2.88 MC/CUMM (3.8-5.5); Red Cell Distribution Width 16.1 % (9.3-17.3); White Blood Count 14.2 T/CUMM (4-12)
[2017-04-01 06:51] LABS: Platelet Count 48 T/CUMM (130-400)
[2017-04-01 07:10] LABS: Band Neutrophils 3 % (0-10); Giant Platelets Few; Hypochromasia 1+; Lymphocytes 3 % (20-55); Platelet Estimate Decreased; Segmented Neutrophils 92 % (50-85); Total Cells Counted 100
[2017-04-01 07:18] LABS: Alanine Aminotransferase 14 U/L (13-56); Albumin 1.5 G/DL (3.4-5.0); Alkaline Phosphatase 93 U/L (45-117); Aspartate Amino Transferase 14 U/L (0-37); Bilirubin,Total < 0.39 MG/DL (0.2-1.0); Blood Urea Nitrogen 76 MG/DL (7-18); Calcium 7.7 MG/DL (8.5-10.1); Glucose 130 MG/DL (74-106); Magnesium 2.2 MG/DL (1.8-2.4); Osmolality,Calculated 318.3 MOS/KG (273-304); Phosphorous 2.6 MG/DL (2.5-4.9); Potassium 4.7 MMOL/L (3.5-5.1); Sodium 148 MMOL/L (136-145); Total Protein 4.5 G/DL (6.4-8.3)
[2017-04-01] MEDS: DORNASE ALFA 2.5 MG/2.5 ML VIAL RESP TX SCH ×2 (07:41→19:01)
[2017-04-01] MEDS: FUROSEMIDE 40 MG/4 ML VIAL IV SCH ×2 (09:32→16:59)
[2017-04-01] MEDS: VANCOMYCIN INJ 1,250 MG in SODIUM CHLORIDE 0.45% 250 ML IV SCH (09:32)
[2017-04-01] MEDS: methylPREDNISolone SOD SUC 40 MG/1 ML VIAL IV SCH ×2 (09:37→22:19)
[2017-04-01] MEDS: NICOTINE 21 MG/24 HR PATCH TRANSDERM SCH (09:40)
[2017-04-01] MEDS: amLODIPine 5 MG TABLET PEG SCH (09:43)
[2017-04-01] MEDS: LEVOTHYROXINE 75 MCG TABLET PO SCH (09:43)
[2017-04-01] MEDS: LISINOPRIL/HCTZ 10-12.5 MG TABLET PO SCH (09:43)
[2017-04-01] MEDS: levETIRAcetam LIQUID 100 MG/ML 30 ML/BOTTLE PO SCH ×2 (09:44→22:49)
[2017-04-01] MEDS: ASPIRIN 300 MG SUPP RECTAL SCH (09:50)
[2017-04-01] MEDS: CHLORHEXIDINE 0.12% ORAL RINSE 60 ML BOTTLE SWISH/SPIT SCH ×2 (09:51→22:51)
[2017-04-01] MEDS: FLUCONAZOLE INJ 200 MG in PREMIX 1 EACH IV SCH (11:44)
[2017-04-01] MEDS: SKIN HEALING OINT (AQUAPHOR) 50 GM TUBE TOP PRN (14:30)
[2017-04-01] MEDS: PANTOPRAZOLE 40 MG VIAL IV SCH (22:45)
[2017-04-01] MEDS: ENOXAPARIN 40 MG/0.4 ML SYRINGE SUBCUT SCH (22:52)
[2017-04-02] MEDS: ALBUTEROL/IPRATROPIUM 3 ML NEB RESP TX SCH ×4 (00:15→19:32)
[2017-04-02 05:51] LABS: Basophils # 0.1 10*3/uL (0.0-0.2); Basophils % 0.5 % (0.0-0.8); Hematocrit 33.1 VOL% (35.7-47.0); Hemoglobin 10.6 GM/DL (12.0-16.0); Immature Granulocytes % 10.6 %; Immature Granulocytes Absolute 1.47 #; Lymphocytes # 0.4 10*3/uL (1.4-4.0); Lymphocytes % 3.1 % (21.3-54.2); Mean Corpuscular Hemoglobin 35 PG (27-34); Mean Corpuscular Volume 107.8 FL (87-102); Mean Platelet Volume 14.1 FL (9.6-12.0); Monocytes # 0.6 10*3/uL (0.11-0.8); Monocytes % 4.6 % (1.7-12.7); NRBC # 0.06 10*3/uL; Neutrophils # 11.2 10*3/uL (1.4-7.4); Neutrophils % 81.2 % (38.7-73.9); Red Blood Count 3.07 MC/CUMM (3.8-5.5); White Blood Count 13.9 T/CUMM (4-12)
[2017-04-02 05:54] LABS: Platelet Count 63 T/CUMM (130-400)
[2017-04-02] MEDS: VALPROIC ACID 250 MG/5 ML UDCUP PO SCH ×3 (06:13→22:28)
[2017-04-02] MEDS: LEVOTHYROXINE 75 MCG TABLET PO SCH (06:13)
[2017-04-02 06:18] LABS: Band Neutrophils 3 % (0-10); Giant Platelets Few; Hypochromasia 1+; Lymphocytes 5 % (20-55); Microcytosis Slight; Myelocytes 1 %; Platelet Estimate Decreased; Segmented Neutrophils 89 % (50-85); Total Cells Counted 100
[2017-04-02 06:19] LABS: Ovalocytes Slight
[2017-04-02 06:35] LABS: Alanine Aminotransferase 16 U/L (13-56); Albumin 1.7 G/DL (3.4-5.0); Alkaline Phosphatase 105 U/L (45-117); Aspartate Amino Transferase 16 U/L (0-37); Blood Urea Nitrogen 80 MG/DL (7-18); Blood Urea Nitrogen 84 MG/DL (7-18); Calcium 8.1 MG/DL (8.5-10.1); Glucose 131 MG/DL (74-106); Glucose 134 MG/DL (74-106); Magnesium 2.5 MG/DL (1.8-2.4); Osmolality,Calculated 317.4 MOS/KG (273-304); Osmolality,Calculated 321.3 MOS/KG (273-304); Phosphorous 3.2 MG/DL (2.5-4.9); Potassium 4.4 MMOL/L (3.5-5.1); Potassium 4.5 MMOL/L (3.5-5.1); Sodium 147 MMOL/L (136-145); Sodium 148 MMOL/L (136-145); Total Protein 4.6 G/DL (6.4-8.3)
[2017-04-02] MEDS: DORNASE ALFA 2.5 MG/2.5 ML VIAL RESP TX SCH ×2 (07:17→19:35)
[2017-04-02] MEDS: INSULIN REGULAR 100 UNIT/ML SUBCUT SCH ×4 (08:09→23:41)
[2017-04-02] MEDS: LISINOPRIL/HCTZ 10-12.5 MG TABLET PO SCH (08:43)
[2017-04-02] MEDS: NICOTINE 21 MG/24 HR PATCH TRANSDERM SCH (08:43)
[2017-04-02] MEDS: amLODIPine 5 MG TABLET PEG SCH (08:43)
[2017-04-02] MEDS: ASPIRIN 300 MG SUPP RECTAL SCH (08:43)
[2017-04-02] MEDS: methylPREDNISolone SOD SUC 40 MG/1 ML VIAL IV SCH ×2 (08:44→22:22)
[2017-04-02] MEDS: CHLORHEXIDINE 0.12% ORAL RINSE 60 ML BOTTLE SWISH/SPIT SCH ×2 (08:44→22:24)
[2017-04-02] MEDS: levETIRAcetam LIQUID 100 MG/ML 30 ML/BOTTLE PO SCH ×2 (08:44→22:29)
[2017-04-02] MEDS: FUROSEMIDE 40 MG/4 ML VIAL IV SCH ×2 (08:44→17:11)
[2017-04-02] MEDS: FLUCONAZOLE INJ 200 MG in PREMIX 1 EACH IV SCH (13:04)
[2017-04-02] MEDS: PANTOPRAZOLE 40 MG VIAL IV SCH (22:25)
[2017-04-02] MEDS: ENOXAPARIN 40 MG/0.4 ML SYRINGE SUBCUT SCH (22:27)
[2017-04-02] MEDS: VANCOMYCIN INJ 1,250 MG in SODIUM CHLORIDE 0.45% 250 ML IV SCH (22:36)
[2017-04-03] MEDS: ALBUTEROL/IPRATROPIUM 3 ML NEB RESP TX SCH ×3 (00:45→13:29)
[2017-04-03] MEDS: VALPROIC ACID 250 MG/5 ML UDCUP PO SCH ×2 (05:56→13:44)
[2017-04-03] MEDS: LEVOTHYROXINE 75 MCG TABLET PO SCH ×2 (05:56→06:25)
[2017-04-03] MEDS: DORNASE ALFA 2.5 MG/2.5 ML VIAL RESP TX SCH (07:44)
[2017-04-03] MEDS: CHLORHEXIDINE 0.12% ORAL RINSE 60 ML BOTTLE SWISH/SPIT SCH (08:00)
[2017-04-03] MEDS: INSULIN REGULAR 100 UNIT/ML SUBCUT SCH ×2 (09:22→11:47)
[2017-04-03] MEDS: ASPIRIN 300 MG SUPP RECTAL SCH (09:23)
[2017-04-03] MEDS: NICOTINE 21 MG/24 HR PATCH TRANSDERM SCH (09:24)
[2017-04-03] MEDS: FUROSEMIDE 40 MG/4 ML VIAL IV SCH (09:24)
[2017-04-03] MEDS: LISINOPRIL/HCTZ 10-12.5 MG TABLET PO SCH (09:24)
[2017-04-03] MEDS: methylPREDNISolone SOD SUC 40 MG/1 ML VIAL IV SCH (09:24)
[2017-04-03] MEDS: amLODIPine 5 MG TABLET PEG SCH (09:24)
[2017-04-03] MEDS: levETIRAcetam LIQUID 100 MG/ML 30 ML/BOTTLE PO SCH (09:25)
[2017-04-03 13:02] VITALS: BP 145/57
[2017-04-03] MEDS: FLUCONAZOLE INJ 200 MG in PREMIX 1 EACH IV SCH (13:44)
== END 2017-04-03 15:58 | DRG 166 ==
LOC: EDUNIT# → EDBD → N.ED 18:55 → N.EDINP 21:41 → SUATTDRO 21:42 → N.ICU 22:44 → N.4E 03-20 18:43
PROVIDERS: ADMIT Internal Medicine
PROC: EGDWPEG (ICD-10-PCS; 2017-03-28 07:05)